=== PATIENT | female | born 2000 | race African-American/Black ===

== ENCOUNTER 2021-02-21 23:01 | Emergency (ER) | payer MEDICAID ==
[~2021-02-21] VITALS: Ht 154.9 cm; Wt 63.5 kg
[2021-02-21 23:52] VITALS: BP 119/65
[2021-02-21] MEDS ORDERED: TOLN108P2 TP (23:56)
== END 2021-02-22 00:21 | disposition home or self-care (01) ==
LOC: ER 23:01
DX: B35.3 Tinea pedis (principal)
CPT/HCPCS: 99282

== ENCOUNTER 2022-02-25 18:00 | Emergency (ER) | payer MEDICAID ==
[~2022-02-25] VITALS: Ht 165.1 cm; Wt 75.0 kg
[~2022-02-25 18:00] MED LIST: TOLN108P2 TP
[2022-02-25 18:03] VITALS: BP 114/72
== END 2022-02-25 20:09 | disposition home or self-care (01) ==
LOC: ER 18:00
DX: S01.112A Laceration without foreign body of left eyelid and periocular area, initial encounter (principal); X58.XXXA Exposure to other specified factors, initial encounter; Y93.89 Activity, other specified; Y92.89 Other specified places as the place of occurrence of the external cause; Y99.8 Other external cause status
CPT/HCPCS: 12011; 99282